=== PATIENT | female | born 1940 | race Caucasian/White ===

== ENCOUNTER 2016-09-13 22:09 | Emergency (ER) | payer MEDICARE, OTHER ==
[~2016-09-13 22:09] MED LIST: ALBUTEROL0.63 MG/3 INH; AMLACTIN12 % T; ARICEPT5 PO; ASAB PO; ATEN25 PO; BISR PR; CRESTOR40 MG PO; DUONEB INH; FISH-EPA1000 MG PO; FLEXERIL5 MG PO; HALF81 PO; HUMALOG KW200 UNIT/1 SC; HUMALOGPEN SC; L40 PO; LANTUSCART SC; LEVSINTAB PO; LIOR10 PO; LOFIBRA134 MG PO; LOTE10 PO; MOMUD; NEUR300 PO; NITROSTAT0.4 MG SL; NORCO1 TA1 PO; NOVOLOGMIX SC; PLAVIX PO; PRILO PO; RAN500 PO; REM15 PO; T PO; ULTRAM50 PO; WELLSR150 PO
[2016-09-13 22:41] LABS: BASOPHILS 0.4 %; BASOPHILS ABSOLUTE 0.03 10/3/uL (0.0-0.16); EOSINOPHILS 3.6 %; EOSINOPHILS ABSOLUTE 0.25 10/3/uL (0.0-0.53); ER CBC TAT 0 Hrs 12 Mins; HEMOGLOBIN 13.5 g/dL (12.0-16.0); IMMATURE GRANULOCYTES 0.4 %; IMMATURE GRANULOCYTES ABSOLUTE 0.03 10/3/uL (0.0-0.11); LYMPHOCYTES 38.5 %; LYMPHOCYTES ABSOLUTE 2.69 10/3/uL (0.67-4.30); MEAN CORPUS HGB CONC 32.9 g/dL (32.0-36.0); MEAN CORPUSCULAR HEMOGLOB 30.7 pg (26.0-34.0); MEAN PLATELET VOLUME 12.6 fL (9.2-13.0); MONOCYTES 6.9 %; MONOCYTES ABSOLUTE 0.48 10/3/uL (0.21-1.20); NEUTROPHILS 50.2 %; PLATELET COUNT 167 10/3/uL (150-400); RBC DISTRIBUTION WIDTH 13.4 % (12.0-16.0)
[2016-09-13 22:42] LABS: MANUAL DIFF NO %; MEAN CORPUSCULAR VOLUME 93.2 fL (80-100)
[2016-09-13 22:57] LABS: A/G RATIO 1.1 (0.7-1.9); ALBUMIN 3.3 G/DL (3.5-5.0); CALCIUM, SERUM 8.6 MG/DL (8.5-10.4); CHLORIDE, SERUM 102 MMOL/L (96-112); CO2 (CARBON DIOXIDE) 27 MMOL/L (24-34); CREATININE 1.62 MG/DL (0.55-1.02); GFR AFRICAN AMERICAN 36 ML/MIN (>=60); GFR NON AFRICAN AMERICAN 31 ML/MIN (>=60); POTASSIUM, SERUM 4.4 MMOL/L (3.5-5.3); SGOT(AST) 14 U/L (5-40); SGPT(ALT) 28 U/L (5-65); SODIUM, SERUM 139 MMOL/L (135-148); TOTAL BILIRUBIN 0.4 MG/DL (0-1.2); TOTAL PROTEIN 6.3 G/DL (6.0-8.5); TROPONIN I 0.02 NG/ML (<0.05)
[2016-09-13 22:58] LABS: ALKALINE PHOSPHATASE 62 U/L (45-117); BUN (BLOOD UREA NITROGEN) 36 MG/DL (6-23); GLUCOSE, SERUM 373 MG/DL (60-99)
[2016-09-13 23:55] LABS: PLATELET ESTIMATE ADQ (ADEQUATE)
[2016-09-13 23:56] LABS: RBC MORPHOLOGY NORM (NORMAL)
[2016-12-07] MEDS ORDERED: ALBUTEROL0.63 MG/3 INH (15:56)
[2016-12-07] MEDS ORDERED: BISR PR (15:57)
[2016-12-07] MEDS ORDERED: FLEETS ENEMA PR (15:57)
[2016-12-07] MEDS ORDERED: NORCO1 TA1 PO (15:58)
[2016-12-07] MEDS ORDERED: LEVSINTAB PO (15:58)
[2016-12-07] MEDS ORDERED: MOMUD PO (15:58)
[2016-12-07] MEDS ORDERED: NITROSTAT0.4 MG SL (15:59)
[2016-12-07] MEDS ORDERED: ULTRAM50 PO (16:00)
[2016-12-07] MEDS ORDERED: GGDM5ML PO (16:00)
[2016-12-07] MEDS ORDERED: PLAVIX PO (16:01)
[2016-12-07] MEDS ORDERED: ATEN25 PO (16:01)
[2016-12-07] MEDS ORDERED: ASAB PO (16:01)
[2016-12-07] MEDS ORDERED: ADVAIR250 INH (16:01)
[2016-12-07] MEDS ORDERED: LIOR10 PO (16:01)
[2016-12-07] MEDS ORDERED: ARICEPT5 PO (16:01)
[2016-12-07] MEDS ORDERED: LANTUSCART SC (16:03)
[2016-12-07] MEDS ORDERED: FENOFIBRATE 134MG PO (16:03)
[2016-12-07] MEDS ORDERED: REM15 PO (16:03)
[2016-12-07] MEDS ORDERED: NEUR300 PO (16:03)
[2016-12-07] MEDS ORDERED: L40 PO (16:03)
[2016-12-07] MEDS ORDERED: NOVOPEN SC (16:04)
[2016-12-07] MEDS ORDERED: RANEXA1000 MG PO (16:04)
[2016-12-07] MEDS ORDERED: PRILOSEC OTC20 MG PO (16:04)
[2016-12-07] MEDS ORDERED: NITROII20C TOP (16:04)
[2016-12-07] MEDS ORDERED: CRESTOR40 MG PO (16:04)
[2016-12-07] MEDS ORDERED: T PO (16:05)
[2016-12-08] MEDS ORDERED: PROTONIX PO (11:34)
[2017-01-18] MEDS ORDERED: LIOR10 PO (21:10)
[2017-01-18] MEDS ORDERED: ASAB PO (21:10)
[2017-01-18] MEDS ORDERED: ATEN25 PO (21:10)
[2017-01-18] MEDS ORDERED: PLAVIX PO (21:10)
[2017-01-18] MEDS ORDERED: ARICEPT5 PO (21:11)
[2017-01-18] MEDS ORDERED: LOFIBRA134 MG PO (21:11)
[2017-01-18] MEDS ORDERED: LANTUSCART SC (21:12)
[2017-01-18] MEDS ORDERED: NEUR300 PO (21:12)
[2017-01-18] MEDS ORDERED: L40 PO (21:12)
[2017-01-18] MEDS ORDERED: REM15 PO (21:12)
[2017-01-18] MEDS ORDERED: NITROII20C TOP (21:13)
[2017-01-18] MEDS ORDERED: NOVOPEN SC (21:14)
[2017-01-18] MEDS ORDERED: PRILO PO (21:14)
[2017-01-18] MEDS ORDERED: RANEXA1000 MG PO (21:15)
[2017-01-18] MEDS ORDERED: CRESTOR40 MG PO (21:21)
[2017-01-18] MEDS ORDERED: T PO (21:22)
[2017-01-18] MEDS ORDERED: AMLACTIN 12% TOP (21:22)
[2017-01-18] MEDS ORDERED: BISR PR (21:23)
[2017-01-18] MEDS ORDERED: ALBUTEROL0.083 % INH (21:23)
[2017-01-18] MEDS ORDERED: MOMUD PO (21:24)
[2017-01-18] MEDS ORDERED: LEVSINTAB PO (21:24)
[2017-01-18] MEDS ORDERED: NITROSTAT0.4 MG SL (21:25)
[2017-01-18] MEDS ORDERED: GGDM5ML PO (21:26)
[2017-01-18] MEDS ORDERED: ULTRAM50 PO (21:26)
[2017-01-18] MEDS ORDERED: PCET PO (21:26)
== END 2016-09-14 01:00 | disposition home or self-care (01) ==
LOC: ER 22:09
PROVIDERS: Emergency Medicine
DX: R20.0 Anesthesia of skin (principal); Z88.8 Allergy status to other drugs, medicaments and biological substances; Z91.018 Allergy to other foods; Z79.82 Long term (current) use of aspirin; Z79.899 Other long term (current) drug therapy
CPT/HCPCS: 71010; 80053; 84484; 85025; 93005; 99285; A9270-GY

== ENCOUNTER 2016-09-18 23:53 | Emergency (ER) | payer MEDICARE, OTHER ==
[2016-09-19 02:55] LABS: BASOPHILS 0.4 %; BASOPHILS ABSOLUTE 0.02 10/3/uL (0.0-0.16); EOSINOPHILS 3.6 %; EOSINOPHILS ABSOLUTE 0.19 10/3/uL (0.0-0.53); HEMATOCRIT 38.6 % (36.0-48.0); HEMOGLOBIN 12.7 g/dL (12.0-16.0); IMMATURE GRANULOCYTES 0.2 %; IMMATURE GRANULOCYTES ABSOLUTE 0.01 10/3/uL (0.0-0.11); LYMPHOCYTES 47.9 %; LYMPHOCYTES ABSOLUTE 2.51 10/3/uL (0.67-4.30); MEAN CORPUS HGB CONC 32.9 g/dL (32.0-36.0); MEAN CORPUSCULAR HEMOGLOB 30.6 pg (26.0-34.0); MEAN PLATELET VOLUME 12.8 fL (9.2-13.0); MONOCYTES 8.2 %; MONOCYTES ABSOLUTE 0.43 10/3/uL (0.21-1.20); NEUTROPHILS 39.7 %; NEUTROPHILS ABSOLUTE 2.08 10/3/uL (2.02-8.40); PLATELET COUNT 149 10/3/uL (150-400); RBC DISTRIBUTION WIDTH 13.4 % (12.0-16.0); RED CELL COUNT 4.15 10/6/uL (4.0-5.6); WHITE BLOOD CELLS 5.2 10/3/uL (4.5-10.5)
[2016-09-19 03:00] LABS: ASCORBIC ACID (UR NOT ORDER) NEG (NEG); BILIRUBIN, URINE NEGATIVE (NEG); ER URINALYSIS TAT 0 Hrs 02 Mins; KETONE, URINE NEGATIVE (NEG); LEUKOCYTE ESTERASE(NOT OR SMALL (NEG); NITRITE (URINE) NEG (NEG); WBC (NOT ORDERED) (RFLEX) 22 (0-5)
[2016-09-19 03:00] LABS: ER CBC TAT 0 Hrs 04 MinsNP; MANUAL DIFF NO %
[2016-09-19 03:06] LABS: PARTIAL THROMBO TIME 28.9 SEC (22.5-37.2); PROTIME (NOT ORD) 13.1 SEC (12.0-14.5)
[2016-09-19 03:20] LABS: CALCIUM, SERUM 8.1 MG/DL (8.5-10.4); CHEST PAIN PROFILE TAT 0 Hrs 29 Mins; CHLORIDE, SERUM 110 MMOL/L (96-112); CO2 (CARBON DIOXIDE) 28 MMOL/L (24-34); GFR AFRICAN AMERICAN 43 ML/MIN (>=60); GFR NON AFRICAN AMERICAN 37 ML/MIN (>=60); POTASSIUM, SERUM 3.9 MMOL/L (3.5-5.3); TROPONIN I <0.02 NG/ML (<0.05)
[2016-09-19 03:21] LABS: BUN (BLOOD UREA NITROGEN) 30 MG/DL (6-23); GLUCOSE, SERUM 199 MG/DL (60-99); SODIUM, SERUM 146 MMOL/L (135-148)
[2016-12-07] MEDS ORDERED: ALBUTEROL0.63 MG/3 INH (15:56)
[2016-12-07] MEDS ORDERED: FLEETS ENEMA PR (15:57)
[2016-12-07] MEDS ORDERED: BISR PR (15:57)
[2016-12-07] MEDS ORDERED: LEVSINTAB PO (15:58)
[2016-12-07] MEDS ORDERED: MOMUD PO (15:58)
[2016-12-07] MEDS ORDERED: NORCO1 TA1 PO (15:58)
[2016-12-07] MEDS ORDERED: NITROSTAT0.4 MG SL (15:59)
[2016-12-07] MEDS ORDERED: GGDM5ML PO (16:00)
[2016-12-07] MEDS ORDERED: ULTRAM50 PO (16:00)
[2016-12-07] MEDS ORDERED: ADVAIR250 INH (16:01)
[2016-12-07] MEDS ORDERED: ATEN25 PO (16:01)
[2016-12-07] MEDS ORDERED: LIOR10 PO (16:01)
[2016-12-07] MEDS ORDERED: ARICEPT5 PO (16:01)
[2016-12-07] MEDS ORDERED: ASAB PO (16:01)
[2016-12-07] MEDS ORDERED: PLAVIX PO (16:01)
[2016-12-07] MEDS ORDERED: NEUR300 PO (16:03)
[2016-12-07] MEDS ORDERED: FENOFIBRATE 134MG PO (16:03)
[2016-12-07] MEDS ORDERED: LANTUSCART SC (16:03)
[2016-12-07] MEDS ORDERED: REM15 PO (16:03)
[2016-12-07] MEDS ORDERED: L40 PO (16:03)
[2016-12-07] MEDS ORDERED: RANEXA1000 MG PO (16:04)
[2016-12-07] MEDS ORDERED: CRESTOR40 MG PO (16:04)
[2016-12-07] MEDS ORDERED: PRILOSEC OTC20 MG PO (16:04)
[2016-12-07] MEDS ORDERED: NITROII20C TOP (16:04)
[2016-12-07] MEDS ORDERED: NOVOPEN SC (16:04)
[2016-12-07] MEDS ORDERED: T PO (16:05)
[2016-12-08] MEDS ORDERED: PROTONIX PO (11:34)
[2017-01-18] MEDS ORDERED: PLAVIX PO (21:10)
[2017-01-18] MEDS ORDERED: ATEN25 PO (21:10)
[2017-01-18] MEDS ORDERED: LIOR10 PO (21:10)
[2017-01-18] MEDS ORDERED: ASAB PO (21:10)
[2017-01-18] MEDS ORDERED: LOFIBRA134 MG PO (21:11)
[2017-01-18] MEDS ORDERED: ARICEPT5 PO (21:11)
[2017-01-18] MEDS ORDERED: NEUR300 PO (21:12)
[2017-01-18] MEDS ORDERED: LANTUSCART SC (21:12)
[2017-01-18] MEDS ORDERED: L40 PO (21:12)
[2017-01-18] MEDS ORDERED: REM15 PO (21:12)
[2017-01-18] MEDS ORDERED: NITROII20C TOP (21:13)
[2017-01-18] MEDS ORDERED: NOVOPEN SC (21:14)
[2017-01-18] MEDS ORDERED: PRILO PO (21:14)
[2017-01-18] MEDS ORDERED: RANEXA1000 MG PO (21:15)
[2017-01-18] MEDS ORDERED: CRESTOR40 MG PO (21:21)
[2017-01-18] MEDS ORDERED: AMLACTIN 12% TOP (21:22)
[2017-01-18] MEDS ORDERED: T PO (21:22)
[2017-01-18] MEDS ORDERED: BISR PR (21:23)
[2017-01-18] MEDS ORDERED: ALBUTEROL0.083 % INH (21:23)
[2017-01-18] MEDS ORDERED: MOMUD PO (21:24)
[2017-01-18] MEDS ORDERED: LEVSINTAB PO (21:24)
[2017-01-18] MEDS ORDERED: NITROSTAT0.4 MG SL (21:25)
[2017-01-18] MEDS ORDERED: ULTRAM50 PO (21:26)
[2017-01-18] MEDS ORDERED: GGDM5ML PO (21:26)
[2017-01-18] MEDS ORDERED: PCET PO (21:26)
== END 2016-09-19 05:21 | disposition home or self-care (01) ==
LOC: ER 23:53
PROVIDERS: Hospitalist
DX: R07.2 Precordial pain (principal); N39.0 Urinary tract infection, site not specified; E11.22 Type 2 diabetes mellitus with diabetic chronic kidney disease; N18.3 Chronic kidney disease, stage 3 (moderate); F03.90 Unspecified dementia, unspecified severity, without behavioral disturbance, psychotic disturbance, mood disturbance, and anxiety; F32.9 Major depressive disorder, single episode, unspecified; Z86.73 Personal history of transient ischemic attack (TIA), and cerebral infarction without residual deficits; Z87.891 Personal history of nicotine dependence; Z88.8 Allergy status to other drugs, medicaments and biological substances; Z91.09 Other allergy status, other than to drugs and biological substances; Z79.82 Long term (current) use of aspirin; Z79.4 Long term (current) use of insulin; Z79.899 Other long term (current) drug therapy
CPT/HCPCS: 70450; 71010; 80048; 81001; 83735; 84484; 85025; 85610; 85730; 87077; 87086; 87186; 93005; 99285; A9270-GY

== ENCOUNTER 2016-12-10 23:02 | Emergency (ER) | payer MEDICARE, OTHER ==
[~2016-12-10 23:02] MED LIST changes: +ADVAIR250 INH; +FENOFIBRATE 134MG PO; +FLEETS ENEMA PR; +GGDM5ML PO; +MOMUD PO; +NITROII20C TOP; +NOVOPEN SC; +PRILOSEC OTC20 MG PO; +PROTONIX PO; +RANEXA1000 MG PO
[2016-12-10 23:29] LABS: BASOPHILS 0.4 %; BASOPHILS ABSOLUTE 0.02 10/3/uL (0.0-0.16); EOSINOPHILS 5.1 %; EOSINOPHILS ABSOLUTE 0.28 10/3/uL (0.0-0.53); HEMATOCRIT 38.8 % (36.0-48.0); HEMOGLOBIN 12.7 g/dL (12.0-16.0); IMMATURE GRANULOCYTES 0.5 %; IMMATURE GRANULOCYTES ABSOLUTE 0.03 10/3/uL (0.0-0.11); LYMPHOCYTES 34.4 %; LYMPHOCYTES ABSOLUTE 1.89 10/3/uL (0.67-4.30); MEAN CORPUS HGB CONC 32.7 g/dL (32.0-36.0); MEAN CORPUSCULAR HEMOGLOB 30.5 pg (26.0-34.0); MEAN CORPUSCULAR VOLUME 93.3 fL (80-100); MEAN PLATELET VOLUME 12.8 fL (9.2-13.0); MONOCYTES 9.1 %; NEUTROPHILS 50.5 %; NEUTROPHILS ABSOLUTE 2.78 10/3/uL (2.02-8.40); PLATELET COUNT 146 10/3/uL (150-400); RBC DISTRIBUTION WIDTH 14.1 % (12.0-16.0); RED CELL COUNT 4.16 10/6/uL (4.0-5.6); WHITE BLOOD CELLS 5.5 10/3/uL (4.5-10.5)
[2016-12-10 23:30] LABS: MANUAL DIFF NO %
[2016-12-10 23:41] LABS: PARTIAL THROMBO TIME 25.9 SEC (22.5-37.2); PROTIME (NOT ORD) 13.1 SEC (12.0-14.5)
[2016-12-10 23:47] LABS: BUN (BLOOD UREA NITROGEN) 33 MG/DL (6-23); CALCIUM, SERUM 8.8 MG/DL (8.5-10.4); CHLORIDE, SERUM 106 MMOL/L (96-112); CO2 (CARBON DIOXIDE) 32 MMOL/L (24-34); CREATININE 1.71 MG/DL (0.55-1.02); GFR AFRICAN AMERICAN 34 ML/MIN (>=60); GFR NON AFRICAN AMERICAN 29 ML/MIN (>=60); POTASSIUM, SERUM 4.3 MMOL/L (3.5-5.3); SODIUM, SERUM 141 MMOL/L (135-148)
[2016-12-10 23:48] LABS: GLUCOSE, SERUM 287 MG/DL (60-99)
[2016-12-10 23:49] LABS: CHEST PAIN PROFILE TAT 0 Hrs 24 Mins; TROPONIN I 0.08 NG/ML (<0.05)
[2016-12-11 00:39] LABS: ALBUMIN 3.3 G/DL (3.5-5.0); ALKALINE PHOSPHATASE 56 U/L (45-117); SGOT(AST) 24 U/L (5-40); SGPT(ALT) 32 U/L (5-65); TOTAL BILIRUBIN 0.3 MG/DL (0-1.2); TOTAL PROTEIN 6.1 G/DL (6.0-8.5)
[2016-12-11 00:41] LABS: DIRECT BILIRUBIN < 0.1 MG/DL (0.0-0.4); INDIRECT BILIRUBIN(NOT ORDER) 0.2 MG/DL (0.1-0.9)
[2017-01-18] MEDS ORDERED: ASAB PO (21:10)
[2017-01-18] MEDS ORDERED: PLAVIX PO (21:10)
[2017-01-18] MEDS ORDERED: LIOR10 PO (21:10)
[2017-01-18] MEDS ORDERED: ATEN25 PO (21:10)
[2017-01-18] MEDS ORDERED: ARICEPT5 PO (21:11)
[2017-01-18] MEDS ORDERED: LOFIBRA134 MG PO (21:11)
[2017-01-18] MEDS ORDERED: LANTUSCART SC (21:12)
[2017-01-18] MEDS ORDERED: NEUR300 PO (21:12)
[2017-01-18] MEDS ORDERED: L40 PO (21:12)
[2017-01-18] MEDS ORDERED: REM15 PO (21:12)
[2017-01-18] MEDS ORDERED: NITROII20C TOP (21:13)
[2017-01-18] MEDS ORDERED: NOVOPEN SC (21:14)
[2017-01-18] MEDS ORDERED: PRILO PO (21:14)
[2017-01-18] MEDS ORDERED: RANEXA1000 MG PO (21:15)
[2017-01-18] MEDS ORDERED: CRESTOR40 MG PO (21:21)
[2017-01-18] MEDS ORDERED: AMLACTIN 12% TOP (21:22)
[2017-01-18] MEDS ORDERED: T PO (21:22)
[2017-01-18] MEDS ORDERED: ALBUTEROL0.083 % INH (21:23)
[2017-01-18] MEDS ORDERED: BISR PR (21:23)
[2017-01-18] MEDS ORDERED: LEVSINTAB PO (21:24)
[2017-01-18] MEDS ORDERED: MOMUD PO (21:24)
[2017-01-18] MEDS ORDERED: NITROSTAT0.4 MG SL (21:25)
[2017-01-18] MEDS ORDERED: GGDM5ML PO (21:26)
[2017-01-18] MEDS ORDERED: ULTRAM50 PO (21:26)
[2017-01-18] MEDS ORDERED: PCET PO (21:26)
== END 2016-12-11 01:00 | disposition home or self-care (01) ==
LOC: ER 23:02
PROVIDERS: Specialist
DX: R10.13 Epigastric pain (principal); Z87.891 Personal history of nicotine dependence; E78.5 Hyperlipidemia, unspecified; E11.22 Type 2 diabetes mellitus with diabetic chronic kidney disease; I12.9 Hypertensive chronic kidney disease with stage 1 through stage 4 chronic kidney disease, or unspecified chronic kidney disease; N18.9 Chronic kidney disease, unspecified; Z95.5 Presence of coronary angioplasty implant and graft; Z95.1 Presence of aortocoronary bypass graft; I73.9 Peripheral vascular disease, unspecified; Z91.018 Allergy to other foods; Z79.899 Other long term (current) drug therapy; Z79.82 Long term (current) use of aspirin; Z79.4 Long term (current) use of insulin; Z88.8 Allergy status to other drugs, medicaments and biological substances
CPT/HCPCS: 71010; 80048; 80076; 83735; 84484; 85025; 85610; 85730; 93005; 96374; 99285; A9270-GY; J2405